=== PATIENT | male | born 1930 | race Caucasian/White ===

== ENCOUNTER 2017-06-20 06:07 | Inpatient (IN) | payer BC, MEDICARE, OTHER ==
[~2017-06-20] VITALS: Ht 137.2 cm; Wt 42.8 kg
[2017-06-20 07:36] LABS: Basophils # (auto) 0 uL; Eosinophils # (auto) 0 uL; Monocytes # (auto) 0.4 uL; Nucleated Red Blood Cells % 0.1 %; White Blood Cell 5.2 10^3/uL (4.4-10.8)
[2017-06-20 07:38] LABS: Basophils % (auto) 0.3 % (0.0-2.0); Eosinophils % (auto) 0.4 % (0.0-7.0); Hematocrit 39.4 % (41.0-53.0); Lymphocytes # (auto) 0.6 uL; Lymphocytes % (auto) 11.2 % (10.0-50.0); Mean Corpuscular Hemoglobin 34.8 pg (28.0-32.0); Mean Corpuscular Hgb Conc. 35.4 g/dL (32.0-36.0); Mean Corpuscular Volume 98.3 fL (80.0-100.0); Neutrophils # (auto) 4.1 uL; Neutrophils % (auto) 80.1 % (37.0-80.0); Platelet Count (auto) 190 10^3/uL (140-450); Red Blood Cells 4.01 10^6/uL (4.5-5.90); Red Cell Distribution Width 13.5 % (11.8-14.3)
[2017-06-20 07:52] LABS: INR 1.05 (0.9-1.15); Partial Thromboplastin Time 30.7 sec (22.64-33.71); Prothrombin Time 11.5 sec (9.37-12.3)
[2017-06-20 07:54] LABS: Albumin 3.6 g/dL (3.4-5.0); BUN/Creatinine Ratio 26.2; Bilirubin, Total 0.8 mg/dL (0.2-1.0); Calcium 8.6 mg/dL (8.5-10.1); Potassium 3.6 mmol/L (3.5-5.1)
[2017-06-20] MEDS ORDERED: SODIUM CHLORIDE 0.9% 1,000 ML IV ONE (09:01)
[2017-06-20] MEDS ORDERED: PANTOPRAZOLE 40 MG/10 ML VIAL IV ONE ×2 (09:15→11:15)
[2017-06-20 10:03] LABS: INR 1.05 (0.9-1.15); Prothrombin Time 11.5 sec (9.37-12.3)
[2017-06-20] MEDS ORDERED: LORazepam 0.5 MG TAB PO PRN (11:15)
[2017-06-20] MEDS ORDERED: HYDROcodone-ACET 5/325MG TAB PO PRN (11:15)
[2017-06-20] MEDS ORDERED: TEMAZEPAM 15 MG CAP PO PRN (11:15)
[2017-06-20] MEDS ORDERED: cefTRIAXone 1GM/10ml IVPUSH 10 ML IV ONE (11:15)
[2017-06-20] MEDS ORDERED: NITROGLYCERIN 0.4 MG SL TAB SL PRN (11:15)
[2017-06-20] MEDS ORDERED: MORPHINE SULFATE 4 MG/ML SYR/VIAL IV PRN ×2 (11:15)
[2017-06-20] MEDS ORDERED: ACETAMINOPHEN 500 MG TAB PO PRN (11:15)
[2017-06-20] MEDS ORDERED: PROMETHAZINE HCL 25 MG/ML 1ML IV PRN (11:15)
[2017-06-20 11:28] LABS: Urine Bacteria NONE SEEN /hpf (None Seen); Urine Blood 2+ /uL (Negative); Urine Mucus FEW (None Seen); Urine Specific Gravity 1.023 (1.001-1.035); Urine WBC 2 /hpf (0 - 3)
[2017-06-20] MEDS: SODIUM CHLORIDE 0.9% 1,000 ML IV SCH ×2 (11:39→19:20)
[2017-06-20 13:36] LABS: CRP High Sensitivity 0.77 mg/dL (< 0.3)
[2017-06-20] MEDS: metroNIDAZOLE 500MG/100ML 100 ML IV SCH ×2 (14:32→22:06)
[2017-06-20 14:54] LABS: Hematocrit 39.6 % (41.0-53.0); Hemoglobin 13.7 g/dL (13.5-17.5)
[2017-06-20 18:54] LABS: Hematocrit 34.9 % (41.0-53.0); Hemoglobin 12.1 g/dL (13.5-17.5)
[2017-06-20 20:00] VITALS: BP 143/87
[2017-06-20] MEDS ORDERED: PANTOPRAZOLE 40 MG/10 ML VIAL IV SCH (22:00)
[2017-06-21 00:54] LABS: Hematocrit 33.1 % (41.0-53.0); Hemoglobin 11.6 g/dL (13.5-17.5)
[2017-06-21] MEDS: SODIUM CHLORIDE 0.9% 1,000 ML IV SCH ×2 (03:13→11:13)
[2017-06-21] MEDS ORDERED: PNEUMOCOCCAL VACC POLYS 25 MCG/0.5 ML VIAL IM ONE (06:00)
[2017-06-21] MEDS: metroNIDAZOLE 500MG/100ML 100 ML IV SCH (06:19)
[2017-06-21 06:51] LABS: Basophils # (auto) 0 uL; Eosinophils # (auto) 0 uL; Lymphocytes # (auto) 0.6 uL; Mean Corpuscular Volume 98.7 fL (80.0-100.0); Neutrophils # (auto) 3.6 uL; Red Cell Distribution Width 13.5 % (11.8-14.3); White Blood Cell 4.7 10^3/uL (4.4-10.8)
[2017-06-21 06:53] LABS: Basophils % (auto) 0.2 % (0.0-2.0); Eosinophils % (auto) 0.3 % (0.0-7.0); Hematocrit 31.2 % (41.0-53.0); Hemoglobin 11.1 g/dL (13.5-17.5); Mean Corpuscular Hemoglobin 35.2 pg (28.0-32.0); Mean Corpuscular Hgb Conc. 35.7 g/dL (32.0-36.0); Monocytes # (auto) 0.4 uL; Monocytes % (auto) 9.2 % (0.0-12.0); Neutrophils % (auto) 77.3 % (37.0-80.0); Platelet Count (auto) 174 10^3/uL (140-450); Red Blood Cells 3.17 10^6/uL (4.5-5.90)
[2017-06-21 07:06] LABS: Cholesterol 84 mg/dL (< 200); HDL Cholesterol 41 mg/dL (40-59); LDL Cholesterol 42 mg/dL (< 100); Triglycerides 51 mg/dL (< 150)
[2017-06-21] MEDS ORDERED: LIDOCAINE VISCOUS 2% 15ML UD ONE (07:49)
[2017-06-21] MEDS ORDERED: fentaNYL CITRATE 100 MCG/2 ML VL ONE (07:50)
[2017-06-21] MEDS ORDERED: MIDAZOLAM HCL 5 MG/ML-1ML VIAL ONE ×2 (07:50→08:12)
[2017-06-21] MEDS ORDERED: diphenhdrAMINE HCL 50 MG/1 ML VL ONE (07:50)
[2017-06-21] MEDS ORDERED: cefTRIAXone 1GM/10ml IVPUSH 10 ML IV SCH (09:00)
[2017-06-21 09:21] VITALS: BP 143/84
[2017-06-21] MEDS ORDERED: PANTOPRAZOLE 40 MG/10 ML VIAL IV SCH (10:00)
[2017-06-21 13:00] VITALS: BP 147/91
[2017-06-21] MEDS ORDERED: LISINOPRIL 10 MG TAB PO ONE (14:15)
[2017-06-21 17:00] VITALS: BP 151/100
[2017-06-21] MEDS ORDERED: METO-158 PO (17:51)
[2017-06-21 20:00] VITALS: BP 146/87
[2017-06-21 21:31] VITALS: BP 146/87
[2017-06-21] MEDS: PANTOPRAZOLE 40 MG TAB PO SCH (21:50)
[2017-06-22 05:13] VITALS: BP 122/68
[2017-06-22 07:36] LABS: Basophils # (auto) 0 uL; Eosinophils # (auto) 0.1 uL; Hemoglobin 11.5 g/dL (13.5-17.5); Lymphocytes # (auto) 0.9 uL; Monocytes # (auto) 0.5 uL; White Blood Cell 4.4 10^3/uL (4.4-10.8)
[2017-06-22 07:37] LABS: BUN/Creatinine Ratio 17.6; Calcium 8.3 mg/dL (8.5-10.1); Potassium 3.1 mmol/L (3.5-5.1)
[2017-06-22 07:38] LABS: Basophils % (auto) 0.3 % (0.0-2.0); Eosinophils % (auto) 1.3 % (0.0-7.0); Hematocrit 32.8 % (41.0-53.0); Lymphocytes % (auto) 20.9 % (10.0-50.0); Mean Corpuscular Hemoglobin 34.7 pg (28.0-32.0); Monocytes % (auto) 10.5 % (0.0-12.0); Neutrophils # (auto) 2.9 uL; Nucleated Red Blood Cells % 0.1 %; Platelet Count (auto) 204 10^3/uL (140-450); Red Blood Cells 3.31 10^6/uL (4.5-5.90); Red Cell Distribution Width 13.6 % (11.8-14.3)
[2017-06-22 09:11] VITALS: BP 152/102
[2017-06-22] MEDS: PANTOPRAZOLE 40 MG TAB PO SCH (09:15)
[2017-06-22] MEDS ORDERED: LISINOPRIL 10 MG TAB PO SCH (10:00)
[2017-06-22] MEDS ORDERED: POTASSIUM CHL 10% (20 MEQ/15ML) 15ml ORAL SOLN PO ONE (13:30)
[2017-06-22] MEDS ORDERED: LABETALOL HCL 5 MG/ML ML 20ML VIAL IV ONE (13:45)
[2017-06-22 14:56] VITALS: BP 132/93
[2017-06-22] MEDS ORDERED: PNEUMOCOCCAL VACC POLYS 25 MCG/0.5 ML VIAL IM ONE (15:15)
== END 2017-06-22 16:18 | disposition home or self-care (01) | DRG 378 ==
LOC: EDBD 06:07 → ER 06:07 → TELE 06:08 → TELE-EAST 20:10
PROVIDERS: ADMIT Internal Medicine; ATTEND Internal Medicine
PROC: 0DB68ZX Excision of Stomach, Via Natural or Artificial Opening Endoscopic, Diagnostic (ICD-10-PCS; principal; 2017-06-21 11:53)
DX: K29.71 Gastritis, unspecified, with bleeding (principal); E87.1 Hypo-osmolality and hyponatremia; D64.9 Anemia, unspecified; J44.9 Chronic obstructive pulmonary disease, unspecified; K29.81 Duodenitis with bleeding; E87.6 Hypokalemia; I10 Essential (primary) hypertension; Z87.11 Personal history of peptic ulcer disease; Z23 Encounter for immunization
CPT/HCPCS: 36415; 43235; 71045; 74176; 76705; 80048; 80053; 80061; 81001; 82150; 82270; 82378; 83690; 85014; 85018; 85025; 85045; 85610; 85652; 85730; 86141; 86677; 86850; 86900; 86901; 87493; 93005; 96361; 96374; 96375; C9113; J2250; J3490